=== PATIENT | female | born 1970 | race Caucasian/White ===

== ENCOUNTER → 2016-12-05 16:19 | Outpatient (CLI) | payer OTHER | END | disposition home or self-care (01) | LOC: D.MAMMO 15:15 | DX: Z12.31 Encounter for screening mammogram for malignant neoplasm of breast (principal) ==

== ENCOUNTER → 2017-01-09 16:17 | Outpatient (CLI) | payer OTHER | END | disposition home or self-care (01) | LOC: D.MAMMO 01-06 11:00 → D.US 01-06 13:00 → D.MAMMO 13:30 | DX: R92.8 Other abnormal and inconclusive findings on diagnostic imaging of breast (principal) ==